=== PATIENT | male | born 1945 | race Caucasian/White ===

== ENCOUNTER 2021-12-15 18:55 | Emergency (ER) | payer MEDICARE ==
[~2021-12-15 18:55] MED LIST: Iopamidol 370 76% 100 ML VIAL ONE
[2021-12-15] MEDS ORDERED: Bacitracin 1 PK ONE (19:01)
[2021-12-15 20:13] LABS: Bilirubin Negative (Negative); Blood, Urine Trace (Negative); Clarity Clear (Clear); Glucose, Urine (Dipstick) Negative (Negative); Ketone, Urine Negative (Negative); Leukocyte Negative (Negative); Nitrite Negative (Negative); Protein, Urine (Dipstick) Trace mg/dL (Neg-Trace); Specific Gravity, Urine 1.015 (1.005-1.030); pH, Urine 5.5 (5.0-9.0)
[2021-12-15 20:27] LABS: RBC/HPF 0-3 HPF (0-3); Squamous Epithelial 0-3 HPF (0-3); WBC/HPF None Seen HPF (0-3)
[2021-12-15 20:40] LABS: Band 5 % (5-11); Lymphocytes 16 % (21-51); MDiff Complete? YES; Mean Corpuscular HGB CONC 31.6 g/dL (32.0-36.0); Mean Corpuscular Hemoglobin 30.7 pg (27.0-31.0); Mean Corpuscular Volume 97.2 fL (78.0-98.0); Mean Platelet Volume 11.4 fL (7.4-10.4); Monocytes 11 % (0-10); Neutrophil 68 % (42-75); Platelet Count 73 thou/uL (130-400); Platelet Morphology Comment Appears Decreased; RBC Distribution Width 14.1 % (11.5-14.5); RBC Morphology Normal; Red Blood Cell (RBC) Count 4.57 mill/uL (4.70-6.10)
[2021-12-15 20:42] LABS: ALT (SGPT) 94 U/L (8-55); AST (SGOT) 47 U/L (5-34); Albumin 3.5 g/dL (3.4-4.8); Alkaline Phosphatase 57 U/L (40-110); Anion Gap 13 mmol/L (10-20); BUN (Urea Nitrogen) 28 mg/dL (8.4-25.7); Bilirubin, Total 1.1 mg/dL (0.2-1.2); CK (CPK) 118 U/L (30-200); Calc. Creatinine Clearance 0 mL/min (70-130); Calcium 8.8 mg/dL (7.8-10.44); Carbon Dioxide 23 mmol/L (23-31); Chloride 103 mmol/L (98-107); Estimated GFR 50; Globulin 2.8 g/dL (2.4-3.5); Glucose 107 mg/dL (83-110); Magnesium 1.7 mg/dL (1.6-2.6); Potassium 3.9 mmol/L (3.5-5.1); Protein, Total 6.3 g/dL (5.8-8.1); Sodium 135 mmol/L (136-145)
== END 2021-12-16 01:50 | disposition short-term general hospital (02) ==
LOC: MADERS 18:55
DX: T21.12XA Burn of first degree of abdominal wall, initial encounter (principal); T22.10XA Burn of first degree of shoulder and upper limb, except wrist and hand, unspecified site, initial encounter; R53.1 Weakness; K80.20 Calculus of gallbladder without cholecystitis without obstruction; N13.4 Hydroureter; D69.6 Thrombocytopenia, unspecified; R74.01 Elevation of levels of liver transaminase levels; I12.9 Hypertensive chronic kidney disease with stage 1 through stage 4 chronic kidney disease, or unspecified chronic kidney disease; N18.30 Chronic kidney disease, stage 3 unspecified; N17.9 Acute kidney failure, unspecified; M10.9 Gout, unspecified; E03.9 Hypothyroidism, unspecified; X32.XXXA Exposure to sunlight, initial encounter; Z87.442 Personal history of urinary calculi; Z79.82 Long term (current) use of aspirin; Z79.899 Other long term (current) drug therapy
CPT/HCPCS: 36415; 70450; 71045; 74177; 80053; 81003; 81015; 82550; 83605; 83735; 85025; 87040; 87086; 93005; 94760; Q9967

== ENCOUNTER 2021-12-21 16:53 | Inpatient (IN) | payer MEDICARE ==
[2021-12-21 17:42] VITALS: BMI 36.0
[2021-12-21] MEDS ORDERED: [UNRECOGNIZED DRUG - OTHER] TP PRN (18:57)
[2021-12-21] MEDS ORDERED: Scopolamine 1.5 mg/72 hour Patch TD SCH (20:00)
[2021-12-21] MEDS: Albuterol 200 PUFF (6.7GM INHALER) INH SCH (20:57)
[2021-12-21] MEDS: guaiFENesin ER 600 MG TAB PO SCH (20:58)
[2021-12-21] MEDS: Allopurinol 100 MG TAB PO SCH (20:59)
[2021-12-21] MEDS ORDERED: Benzonatate 100 MG CAP PO SCH (21:00)
[2021-12-21] MEDS: Atorvastatin Calcium 40 MG TAB PO SCH (21:00)
[2021-12-21] MEDS: Benzonatate 100 MG CAP PO SCH (21:00)
[2021-12-21] MEDS: Acetaminophen 325 MG TAB PO PRN (21:00)
[2021-12-21] MEDS ORDERED: Silver Sulfadiazine 50 GM JAR TP SCH (23:15)
[2021-12-22] MEDS: Albuterol 200 PUFF (6.7GM INHALER) INH SCH ×6 (00:38→20:00)
[2021-12-22] MEDS ORDERED: Silver Sulfadiazine 50 GM JAR TP SCH (09:00)
[2021-12-22] MEDS ORDERED: Cartilage/Collagen/Bor/Hyalur [Joint Health Tablet] PO SCH (09:00)
[2021-12-22] MEDS: Carvedilol 3.125 MG TAB PO SCH ×2 (09:17→17:27)
[2021-12-22] MEDS: Tamsulosin HCl 0.4 MG CAP PO SCH (09:17)
[2021-12-22] MEDS: guaiFENesin ER 600 MG TAB PO SCH ×2 (09:17→20:58)
[2021-12-22] MEDS: Aspirin Chewable 81 MG TAB PO SCH (09:17)
[2021-12-22] MEDS: Dexamethasone 4 MG TAB PO SCH (09:17)
[2021-12-22] MEDS: Benzonatate 100 MG CAP PO SCH ×3 (09:17→20:57)
[2021-12-22] MEDS: Fluticasone Propionate Nasal Spray 16 gm Bottle NASAL SCH (09:18)
[2021-12-22] MEDS: Clopidogrel Bisulfate 75 MG TAB PO SCH (09:18)
[2021-12-22] MEDS: Levothyroxine Sodium 100 MCG TAB PO SCH (09:18)
[2021-12-22] MEDS: Enoxaparin Sodium 40 MG/0.4 ML SYRINGE SC SCH (09:18)
[2021-12-22] MEDS: Acetaminophen 325 MG TAB PO PRN (14:47)
[2021-12-22] MEDS: Acetaminophen/Codeine 30-300mg Tablet PO PRN ×2 (17:28→23:12)
[2021-12-22] MEDS ORDERED: Scopolamine 1.5 mg/72 hour Patch TD SCH (18:30)
[2021-12-22] MEDS: Allopurinol 100 MG TAB PO SCH (20:57)
[2021-12-22] MEDS: Atorvastatin Calcium 40 MG TAB PO SCH (20:57)
[2021-12-22] MEDS: Silver Sulfadiazine 50 GM JAR TP SCH (21:02)
[2021-12-23] MEDS: Albuterol 200 PUFF (6.7GM INHALER) INH SCH ×6 (02:33→19:47)
[2021-12-23] MEDS: Levothyroxine Sodium 100 MCG TAB PO SCH (05:28)
[2021-12-23] MEDS: Aspirin Chewable 81 MG TAB PO SCH (09:00)
[2021-12-23] MEDS: guaiFENesin ER 600 MG TAB PO SCH ×2 (09:00→19:42)
[2021-12-23] MEDS: Acetaminophen/Codeine 30-300mg Tablet PO PRN ×2 (09:00→15:25)
[2021-12-23] MEDS: Tamsulosin HCl 0.4 MG CAP PO SCH (09:00)
[2021-12-23] MEDS: Dexamethasone 4 MG TAB PO SCH (09:01)
[2021-12-23] MEDS: Benzonatate 100 MG CAP PO SCH ×3 (09:01→19:42)
[2021-12-23] MEDS: Clopidogrel Bisulfate 75 MG TAB PO SCH (09:01)
[2021-12-23] MEDS: Carvedilol 3.125 MG TAB PO SCH ×2 (09:01→17:49)
[2021-12-23] MEDS: Enoxaparin Sodium 40 MG/0.4 ML SYRINGE SC SCH (09:02)
[2021-12-23] MEDS: Fluticasone Propionate Nasal Spray 16 gm Bottle NASAL SCH (09:02)
[2021-12-23] MEDS: Acetaminophen 325 MG TAB PO PRN ×2 (13:29→19:41)
[2021-12-23] MEDS: Allopurinol 100 MG TAB PO SCH (19:41)
[2021-12-23] MEDS: Atorvastatin Calcium 40 MG TAB PO SCH (19:42)
[2021-12-23] MEDS: Silver Sulfadiazine 50 GM JAR TP SCH (19:45)
[2021-12-24] MEDS: Albuterol 200 PUFF (6.7GM INHALER) INH SCH ×6 (00:42→21:50)
[2021-12-24] MEDS: Acetaminophen/Codeine 30-300mg Tablet PO PRN ×2 (05:21→16:30)
[2021-12-24] MEDS: Levothyroxine Sodium 100 MCG TAB PO SCH (05:21)
[2021-12-24 07:26] LABS: ALT (SGPT) 62 U/L (8-55); AST (SGOT) 26 U/L (5-34); Alkaline Phosphatase 63 U/L (40-110); Anion Gap 15 mmol/L (10-20); BUN (Urea Nitrogen) 36 mg/dL (8.4-25.7); Bilirubin, Total 0.5 mg/dL (0.2-1.2); Calc. Creatinine Clearance 77 mL/min (70-130); Calcium 9.9 mg/dL (7.8-10.44); Carbon Dioxide 22 mmol/L (23-31); Chloride 107 mmol/L (98-107); Estimated GFR 56; Globulin 3.4 g/dL (2.4-3.5); Glucose 101 mg/dL (83-110); Potassium 4.4 mmol/L (3.5-5.1); Protein, Total 7.4 g/dL (5.8-8.1); Sodium 140 mmol/L (136-145)
[2021-12-24] MEDS: Dexamethasone 4 MG TAB PO SCH (09:40)
[2021-12-24] MEDS: Aspirin Chewable 81 MG TAB PO SCH (09:40)
[2021-12-24] MEDS: Tamsulosin HCl 0.4 MG CAP PO SCH (09:40)
[2021-12-24] MEDS: guaiFENesin ER 600 MG TAB PO SCH ×2 (09:40→21:49)
[2021-12-24] MEDS: Benzonatate 100 MG CAP PO SCH ×3 (09:40→21:50)
[2021-12-24] MEDS: Carvedilol 3.125 MG TAB PO SCH ×2 (09:40→16:31)
[2021-12-24] MEDS: Enoxaparin Sodium 40 MG/0.4 ML SYRINGE SC SCH (09:41)
[2021-12-24] MEDS: Clopidogrel Bisulfate 75 MG TAB PO SCH (09:41)
[2021-12-24] MEDS: Fluticasone Propionate Nasal Spray 16 gm Bottle NASAL SCH (09:42)
[2021-12-24] MEDS: Allopurinol 100 MG TAB PO SCH (21:49)
[2021-12-24] MEDS: Atorvastatin Calcium 40 MG TAB PO SCH (21:50)
[2021-12-24] MEDS: Silver Sulfadiazine 50 GM JAR TP SCH (21:51)
[2021-12-24] MEDS: Acetaminophen 325 MG TAB PO PRN (22:19)
[2021-12-25] MEDS: Albuterol 200 PUFF (6.7GM INHALER) INH SCH ×6 (01:20→21:56)
[2021-12-25] MEDS: Levothyroxine Sodium 100 MCG TAB PO SCH (05:33)
[2021-12-25] MEDS: Dexamethasone 4 MG TAB PO SCH (08:22)
[2021-12-25] MEDS: Carvedilol 3.125 MG TAB PO SCH ×2 (08:22→17:33)
[2021-12-25] MEDS: Clopidogrel Bisulfate 75 MG TAB PO SCH (08:22)
[2021-12-25] MEDS: Benzonatate 100 MG CAP PO SCH ×3 (08:22→21:54)
[2021-12-25] MEDS: Tamsulosin HCl 0.4 MG CAP PO SCH (08:22)
[2021-12-25] MEDS: Fluticasone Propionate Nasal Spray 16 gm Bottle NASAL SCH (08:23)
[2021-12-25] MEDS: guaiFENesin ER 600 MG TAB PO SCH ×2 (08:23→21:54)
[2021-12-25] MEDS: Aspirin Chewable 81 MG TAB PO SCH (08:23)
[2021-12-25] MEDS: Enoxaparin Sodium 40 MG/0.4 ML SYRINGE SC SCH (08:23)
[2021-12-25] MEDS: Acetaminophen/Codeine 30-300mg Tablet PO PRN ×2 (12:11→21:55)
[2021-12-25] MEDS ORDERED: Scopolamine 1.5 mg/72 hour Patch TD SCH (18:00)
[2021-12-25] MEDS: Allopurinol 100 MG TAB PO SCH (21:54)
[2021-12-25] MEDS: Atorvastatin Calcium 40 MG TAB PO SCH (21:55)
[2021-12-25] MEDS: Silver Sulfadiazine 50 GM JAR TP SCH (21:57)
[2021-12-26] MEDS: Albuterol 200 PUFF (6.7GM INHALER) INH SCH ×6 (00:17→21:48)
[2021-12-26] MEDS: Acetaminophen 325 MG TAB PO PRN (00:50)
[2021-12-26] MEDS: Levothyroxine Sodium 100 MCG TAB PO SCH (05:43)
[2021-12-26] MEDS: guaiFENesin ER 600 MG TAB PO SCH ×2 (08:20→21:47)
[2021-12-26] MEDS: Tamsulosin HCl 0.4 MG CAP PO SCH (08:20)
[2021-12-26] MEDS: Benzonatate 100 MG CAP PO SCH ×3 (08:20→21:47)
[2021-12-26] MEDS: Dexamethasone 4 MG TAB PO SCH (08:20)
[2021-12-26] MEDS: Clopidogrel Bisulfate 75 MG TAB PO SCH (08:20)
[2021-12-26] MEDS: Enoxaparin Sodium 40 MG/0.4 ML SYRINGE SC SCH (08:20)
[2021-12-26] MEDS: Carvedilol 3.125 MG TAB PO SCH ×2 (08:21→16:25)
[2021-12-26] MEDS: Fluticasone Propionate Nasal Spray 16 gm Bottle NASAL SCH (08:21)
[2021-12-26] MEDS: Aspirin Chewable 81 MG TAB PO SCH (08:21)
[2021-12-26] MEDS: Acetaminophen/Codeine 30-300mg Tablet PO PRN (20:28)
[2021-12-26] MEDS: Allopurinol 100 MG TAB PO SCH (21:47)
[2021-12-26] MEDS: Atorvastatin Calcium 40 MG TAB PO SCH (21:47)
[2021-12-26] MEDS: Silver Sulfadiazine 50 GM JAR TP SCH (21:48)
[2021-12-27] MEDS: Albuterol 200 PUFF (6.7GM INHALER) INH SCH ×6 (03:01→20:22)
[2021-12-27] MEDS: Levothyroxine Sodium 100 MCG TAB PO SCH (06:05)
[2021-12-27] MEDS: Benzonatate 100 MG CAP PO SCH ×3 (08:29→20:18)
[2021-12-27] MEDS: Fluticasone Propionate Nasal Spray 16 gm Bottle NASAL SCH (08:29)
[2021-12-27] MEDS: Aspirin Chewable 81 MG TAB PO SCH (08:29)
[2021-12-27] MEDS: Enoxaparin Sodium 40 MG/0.4 ML SYRINGE SC SCH (08:29)
[2021-12-27] MEDS: Tamsulosin HCl 0.4 MG CAP PO SCH (08:29)
[2021-12-27] MEDS: Clopidogrel Bisulfate 75 MG TAB PO SCH (08:29)
[2021-12-27] MEDS: Carvedilol 3.125 MG TAB PO SCH ×2 (08:29→17:19)
[2021-12-27] MEDS: guaiFENesin ER 600 MG TAB PO SCH ×2 (08:29→20:18)
[2021-12-27] MEDS: Acetaminophen 325 MG TAB PO PRN (08:35)
[2021-12-27] MEDS: Atorvastatin Calcium 40 MG TAB PO SCH (20:18)
[2021-12-27] MEDS: Allopurinol 100 MG TAB PO SCH (20:18)
[2021-12-27] MEDS: Acetaminophen/Codeine 30-300mg Tablet PO PRN (20:21)
[2021-12-27] MEDS: Silver Sulfadiazine 50 GM JAR TP SCH (20:23)
[2021-12-28] MEDS: Albuterol 200 PUFF (6.7GM INHALER) INH SCH ×4 (02:19→12:30)
[2021-12-28] MEDS: Acetaminophen/Codeine 30-300mg Tablet PO PRN (05:19)
[2021-12-28] MEDS: Levothyroxine Sodium 100 MCG TAB PO SCH (05:19)
[2021-12-28 07:13] VITALS: BP 113/66; TEMP 97.9
[2021-12-28] MEDS: Fluticasone Propionate Nasal Spray 16 gm Bottle NASAL SCH (08:05)
[2021-12-28] MEDS: Clopidogrel Bisulfate 75 MG TAB PO SCH (08:08)
[2021-12-28] MEDS: Carvedilol 3.125 MG TAB PO SCH (08:08)
[2021-12-28] MEDS: Benzonatate 100 MG CAP PO SCH (08:08)
[2021-12-28] MEDS: Aspirin Chewable 81 MG TAB PO SCH (08:08)
[2021-12-28] MEDS: Enoxaparin Sodium 40 MG/0.4 ML SYRINGE SC SCH (08:08)
[2021-12-28] MEDS: Tamsulosin HCl 0.4 MG CAP PO SCH (08:08)
[2021-12-28] MEDS: guaiFENesin ER 600 MG TAB PO SCH (08:08)
== END 2021-12-28 13:58 | disposition home health service (06) | DRG 948 ==
LOC: MADMS 16:53
PROVIDERS: ADMIT Family Medicine; ATTEND Family Medicine
DX: R53.1 Weakness (principal); I10 Essential (primary) hypertension; E78.5 Hyperlipidemia, unspecified; E03.9 Hypothyroidism, unspecified; M10.9 Gout, unspecified; I89.0 Lymphedema, not elsewhere classified; N40.0 Benign prostatic hyperplasia without lower urinary tract symptoms; E66.01 Morbid (severe) obesity due to excess calories; K80.20 Calculus of gallbladder without cholecystitis without obstruction; R53.81 Other malaise; Z91.011 Allergy to milk products; Z86.16 Personal history of COVID-19; Z91.048 Other nonmedicinal substance allergy status; Z79.899 Other long term (current) drug therapy; Z79.82 Long term (current) use of aspirin; Z79.02 Long term (current) use of antithrombotics/antiplatelets; Z79.890 Hormone replacement therapy; Z68.35 Body mass index [BMI] 35.0-35.9, adult
CPT/HCPCS: 80053; J1650; J8540

== ENCOUNTER 2022-01-02 11:04 | Emergency (ER) | payer MEDICARE ==
[2022-01-02 12:11] LABS: #Basophils 0.1 thou/uL (0.0-0.2); #Eosinphils 0.1 thou/uL (0.0-0.7); #Lymphocytes 1.6 thou/uL (1.20-3.40); #Monocytes 0.5 thou/uL (0.11-0.59); #Neutrophils 5.6 thou/uL (1.40-6.50); %Basophils 0.7 % (0.0-1.0); %Eosinophils 1.7 % (0.0-10.0); %Monocytes 5.9 % (0.0-10.0); %Neutrophils 71.6 % (42.0-75.0); Hemoglobin 13.5 g/dL (14.0-18.0); Mean Corpuscular HGB CONC 31.4 g/dL (32.0-36.0); Mean Corpuscular Hemoglobin 30.2 pg (27.0-31.0); Mean Corpuscular Volume 96.2 fL (78.0-98.0); Mean Platelet Volume 9.5 fL (7.4-10.4); Platelet Count 149 thou/uL (130-400); RBC Distribution Width 14.4 % (11.5-14.5); Red Blood Cell (RBC) Count 4.46 mill/uL (4.70-6.10); White Blood Cell (WBC) Count 7.9 thou/uL (4.8-10.8)
[2022-01-02 12:29] LABS: ALT (SGPT) 34 U/L (8-55); AST (SGOT) 17 U/L (5-34); Albumin 3.6 g/dL (3.4-4.8); Alkaline Phosphatase 80 U/L (40-110); Anion Gap 14 mmol/L (10-20); BUN (Urea Nitrogen) 23 mg/dL (8.4-25.7); Bilirubin, Total 0.8 mg/dL (0.2-1.2); Calc. Creatinine Clearance 0 mL/min (70-130); Calcium 10.2 mg/dL (7.8-10.44); Carbon Dioxide 26 mmol/L (23-31); Chloride 104 mmol/L (98-107); Estimated GFR 52; Globulin 3.4 g/dL (2.4-3.5); Glucose 97 mg/dL (83-110); Lipase 43 U/L (8-78); Potassium 4.3 mmol/L (3.5-5.1); Sodium 140 mmol/L (136-145)
== END 2022-01-02 13:14 | disposition home or self-care (01) ==
LOC: MADERS 11:04
DX: K80.20 Calculus of gallbladder without cholecystitis without obstruction (principal); I10 Essential (primary) hypertension; M10.9 Gout, unspecified; E03.9 Hypothyroidism, unspecified; Z87.442 Personal history of urinary calculi; Z79.82 Long term (current) use of aspirin; Z79.899 Other long term (current) drug therapy
CPT/HCPCS: 71045; 76705; 80053; 83605; 83690; 84484; 85025; 93005; 94760